=== PATIENT | male | born 1970 | race American Indian/Alaskan Native ===

== ENCOUNTER 2017-04-05 21:50 | Observation (INO) | payer BC ==
[2017-04-05 22:42] LABS: BASO # 0.1 K/uL (0.0-0.2); BASO % 1.3 % (0.0-2.0); EOS # 0.1 K/uL (0.0-0.7); EOS % 1.4 % (0.0-4.0); HEMATOCRIT 39.9 % (35.0-51.0); LYMPH # 1.9 K/uL (1.0-4.3); MEAN CELL VOLUME 83.2 fL (80.0-94.0); MEAN CORPUSCULAR HGB CONC 33.7 g/dL (33.0-37.0); MEAN PLATELET VOLUME 7.7 fL (7.2-11.7); MONO # 0.5 K/uL (0.0-0.8); MONO % 10.3 % (0.0-10.0); RED CELL DISTRIBUTION WIDTH 14.1 % (11.5-14.5)
[2017-04-05 22:49] LABS: CHLORIDE 104 mmol/L (98-107); SODIUM 139 mmol/L (132-148)
[2017-04-05 22:50] LABS: POTASSIUM 4.2 mmol/L (3.6-5.2)
[2017-04-05 22:52] LABS: ALB/GLOB RATIO 1.2 (1.0-2.1); ALKALINE PHOSPHATASE 62 U/L (38-126); ALT/SGPT 32 U/L (21-72); AST/SGOT 21 U/L (17-59); BILIRUBIN,TOTAL 0.5 mg/dL (0.2-1.3); BLOOD UREA NITROGEN 20 mg/dL (9-20); CARBON DIOXIDE 25 mmol/L (22-30); GFR AFRICAN-AMERICAN > 60; TOTAL PROTEIN 7.3 g/dL (6.3-8.3)
[2017-04-05 22:53] LABS: CALCIUM 8.5 mg/dl (8.6-10.4); GLUCOSE,RANDOM 93 mg/dL (75-110)
[2017-04-05 23:59] LABS: PARTIAL THROMBOPLASTIN TIME 26 SECONDS (21-34)
--- NOTE | 2017-04-06 00:28 | C.PDOC ---
History Of Present Illness Pt c/o left sided chest pain. Time Seen by Provider: 04/05/17 22:34 Chief Complaint (Nursing): Chest Pain History Per: Patient, Family Onset/Duration Of Symptoms: Days (few), Intermittent Episodes Current Symptoms Are (Timing): Still Present Severity: Moderate Quality: "Pain" Associated Symptoms: Dyspnea. denies: Nausea, Diaphoresis, Syncope Alleviating Factors: None Additional History Per: Prior Records Past Medical History Reviewed: Historical Data, Nursing Documentation, Vital Signs Vital Signs: Last Vital Signs Temp 98.2 F 04/05/17 22:17 Pulse 64 04/05/17 22:17 Resp 20 04/05/17 22:17 BP 127/87 04/05/17 22:17 Pulse Ox 98 04/05/17 22:17 - Medical History PMH: No Chronic Diseases Surgical History: No Surg Hx Family History: States: Unknown Family Hx - Social History Hx Tobacco Use: No Hx Alcohol Use: Yes Hx Substance Use: No Review Of Systems Except As Marked, All Systems Reviewed And Found Negative. Constitutional: Negative for: Fever, Weakness Cardiovascular: Positive for: Chest Pain Respiratory: Negative for: Shortness of Breath Gastrointestinal: Negative for: Vomiting, Abdominal Pain Musculoskeletal: Negative for: Neck Pain, Back Pain, Leg Pain Skin: Negative for: Rash Neurological: Negative for: Weakness, Numbness Physical Exam - Physical Exam Appears: Non-toxic, No Acute Distress Skin: Normal Color, Warm, Dry, No Rash Head: Atraumatic, Normacephalic Eye(s): bilateral: Normal Inspection, PERRL, EOMI Neck: Normal ROM, Supple Chest: Symmetrical, No Deformity, No Tenderness Cardiovascular: Rhythm Regular Respiratory: Normal Breath Sounds, No Accessory Muscle Use Gastrointestinal/Abdominal: Soft, No Tenderness Back: No CVA Tenderness Extremity: Normal ROM, No Pedal Edema, No Calf Tenderness Neurological/Psych: Oriented x3, Normal Motor, Normal Sensation ED Course And Treatment - Laboratory Results Result Diagrams: 04/05/17 22:38 04/05/17 22:38 Lab Interpretation: No Acute Changes ECG: Interpreted By Me, Viewed By Me ECG Rhythm: Sinus Rhythm, ST/T Changes (T wave inversions in leads III and aVF. ) ECG Interpretation: Abnormal Rate From EC O2 Sat by Pulse Oximetry: 98 Pulse Ox Interpretation: Normal - Radiology CXR: Interpreted by Me, Viewed By Me CXR Interpretation: Yes: No Acute Disease, Heart Size (wnl) Progress - Interventions Interventions:: Observation - Medications Administered Oral: Aspirin - Data Reviewed Data Reviewed: Lab, Diagnostic imaging, EKG, Old records - Patient Status Patient status: Partially improved - Continuity of Care Discussed patient case with:: Patient, Family-HIPPA compliant, ED Nurse, On- call PMD-pt unassigned Disposition Discussed With DrMary: Hermann Chapman Comment: He accepted pt on his service and gave admitting orders to the nurse. Doctor Will See Patient In The: Hospital Counseled Patient/Family Regarding: Studies Performed, Diagnosis - Disposition Disposition: HOSPITALIZED Disposition Time: 00:31 Condition: FAIR - Clinical Impression Clinical Impression: Chest pain, Abnormal EKG
--- NOTE | 2017-04-06 08:52 | RAD ---
HISTORY: Chest pain COMPARISON: No prior. FINDINGS: LUNGS: The lungs are well inflated and clear. PLEURA: No significant pleural effusion identified, no pneumothorax apparent. CARDIOVASCULAR: Normal. OSSEOUS STRUCTURES: No significant abnormalities. VISUALIZED UPPER ABDOMEN: Normal. OTHER FINDINGS: None. IMPRESSION: No active pulmonary disease.
[2017-04-06] MEDS: Enoxaparin 40 mg Syringe SC SCH (10:22)
[2017-04-06] MEDS: Pantoprazole 40 mg EC Tab PO SCH (10:22)
[2017-04-06] MEDS: Aspirin 325 mg EC Tablets PO SCH (11:19)
--- NOTE | 2017-04-06 17:56 | CP.PCM.HP ---
Past Patient History - Past Medical History & Family History Past Medical History?: No - Past Social History Smoking Status: Never Smoked - CARDIAC Hx Heart Murmur: Yes - MUSCULOSKELETAL/RHEUMATOLOGICAL Hx Falls: No - PSYCHIATRIC Hx Substance Use: No - SURGICAL HISTORY Hx Surgeries: Yes Other/Comment: R knee fluid drained 03/22/2017 @'s office - ANESTHESIA Hx Anesthesia: No Meds Allergies/Adverse Reactions: Allergies Allergy/AdvReac Type Severity Reaction Status Date / Time No Known Allergies Allergy Verified 04/05/17 22:01 Physical Exam - Constitutional Appears: Well - Head Exam Head Exam: ATRAUMATIC, NORMAL INSPECTION, NORMOCEPHALIC - Eye Exam Eye Exam: EOMI, Normal appearance, PERRL Pupil Exam: NORMAL ACCOMODATION, PERRL - ENT Exam ENT Exam: Mucous Membranes Moist, Normal Exam - Neck Exam Neck exam: Positive for: Normal Inspection - Respiratory Exam Respiratory Exam: Decreased Breath Sounds - Cardiovascular Exam Cardiovascular Exam: REGULAR RHYTHM, +S1, +S2 - GI/Abdominal Exam GI & Abdominal Exam: Diminished Bowel Sounds, Soft - Rectal Exam Rectal Exam: Deferred Results - Vital Signs Recent Vital Signs: Last Vital Signs Temp 98.3 F 04/06/17 16:00 Pulse 62 04/06/17 10:00 Resp 18 04/06/17 04:00 BP 114/72 04/06/17 03:12 Pulse Ox 98 04/06/17 04:00 - Labs Result Diagrams: 04/05/17 22:38 04/05/17 22:38 Labs: Laboratory Results - last 24 hr 04/05/17 04/05/17 04/05/17 22:38 22:38 23:34 WBC 5.0 RBC 4.79 Hgb 13.4 Hct 39.9 MCV 83.2 MCH 28.0 MCHC 33.7 RDW 14.1 Plt Count 254 MPV 7.7 Neut % (Auto) 49.0 L Lymph % (Auto) 38.0 [place] % (Auto) 10.3 H Eos % (Auto) 1.4 Baso % (Auto) 1.3 Neut # 2.4 Lymph # 1.9 [place] # 0.5 Eos # 0.1 Baso # 0.1 PT 11.8 INR 1.0 APTT 26 D-Dimer, Quantitative < 200 Sodium 139 Potassium 4.2 Chloride 104 Carbon Dioxide 25 Anion Gap 14 BUN 20 Creatinine 1.2 Est GFR ( Amer) > 60 Est GFR (Non-Af Amer) > 60 Random Glucose 93 Calcium 8.5 L Total Bilirubin 0.5 AST 21 ALT 32 Alkaline Phosphatase 62 Total Creatine Kinase 339 H CK-MB (Mass) 2.38 Troponin I, Quant < 0.0120 Total Protein 7.3 Albumin 4.0 Globulin 3.3 Albumin/Globulin Ratio 1.2 04/06/17 04/06/17 06:23 15:20 WBC RBC Hgb Hct MCV MCH MCHC RDW Plt Count MPV Neut % (Auto) Lymph % (Auto) [place] % (Auto) Eos % (Auto) Baso % (Auto) Neut # Lymph # [place] # Eos # Baso # PT INR APTT D-Dimer, Quantitative Sodium Potassium Chloride Carbon Dioxide Anion Gap BUN Creatinine Est GFR ( Amer) Est GFR (Non-Af Amer) Random Glucose Calcium Total Bilirubin AST ALT Alkaline Phosphatase Total Creatine Kinase 306 H 334 H CK-MB (Mass) 2.12 2.35 Troponin I, Quant < 0.0120 < 0.0120 Total Protein Albumin Globulin Albumin/Globulin Ratio
--- NOTE | 2017-04-06 21:54 | CP.PCM.CON ---
History of Present Illness - History of Present Illness History of Present Illness: Patient seen and evaluated Admitted with chest pain For stress test in am ECHO: Normal Ef Past Patient History - Past Medical History & Family History Past Medical History?: No - Past Social History Smoking Status: Never Smoked - CARDIAC Hx Heart Murmur: Yes - MUSCULOSKELETAL/RHEUMATOLOGICAL Hx Falls: No - PSYCHIATRIC Hx Substance Use: No - SURGICAL HISTORY Hx Surgeries: Yes Other/Comment: R knee fluid drained 03/22/2017 @'s office - ANESTHESIA Hx Anesthesia: No Meds Allergies/Adverse Reactions: Allergies Allergy/AdvReac Type Severity Reaction Status Date / Time No Known Allergies Allergy Verified 04/05/17 22:01 - Medications Medications: Current Medications Aspirin (Ecotrin) 325 mg PO DAILY [facility] Last Admin: 04/06/17 11:19 Dose: Not Given Enoxaparin Sodium (Lovenox) 40 mg SC DAILY [facility] Last Admin: 04/06/17 10:22 Dose: 40 mg Pantoprazole Sodium (Protonix Ec Tab) 40 mg PO DAILY [facility] Last Admin: 04/06/17 10:22 Dose: 40 mg Results - Vital Signs Recent Vital Signs: Last Vital Signs Temp 98.2 F 04/06/17 20:00 Pulse 76 04/06/17 20:00 Resp 17 04/06/17 20:00 BP 134/89 04/06/17 20:00 Pulse Ox 98 04/06/17 20:00 - Labs Result Diagrams: 04/05/17 22:38 04/05/17 22:38 Labs: Laboratory Results - last 24 hr 04/05/17 04/05/17 04/05/17 22:38 22:38 23:34 WBC 5.0 RBC 4.79 Hgb 13.4 Hct 39.9 MCV 83.2 MCH 28.0 MCHC 33.7 RDW 14.1 Plt Count 254 MPV 7.7 Neut % (Auto) 49.0 L Lymph % (Auto) 38.0 [place] % (Auto) 10.3 H Eos % (Auto) 1.4 Baso % (Auto) 1.3 Neut # 2.4 Lymph # 1.9 [place] # 0.5 Eos # 0.1 Baso # 0.1 PT 11.8 INR 1.0 APTT 26 D-Dimer, Quantitative < 200 Sodium 139 Potassium 4.2 Chloride 104 Carbon Dioxide 25 Anion Gap 14 BUN 20 Creatinine 1.2 Est GFR ( Amer) > 60 Est GFR (Non-Af Amer) > 60 Random Glucose 93 Calcium 8.5 L Total Bilirubin 0.5 AST 21 ALT 32 Alkaline Phosphatase 62 Total Creatine Kinase 339 H CK-MB (Mass) 2.38 Troponin I, Quant < 0.0120 Total Protein 7.3 Albumin 4.0 Globulin 3.3 Albumin/Globulin Ratio 1.2 04/06/17 04/06/17 06:23 15:20 WBC RBC Hgb Hct MCV MCH MCHC RDW Plt Count MPV Neut % (Auto) Lymph % (Auto) [place] % (Auto) Eos % (Auto) Baso % (Auto) Neut # Lymph # [place] # Eos # Baso # PT INR APTT D-Dimer, Quantitative Sodium Potassium Chloride Carbon Dioxide Anion Gap BUN Creatinine Est GFR ( Amer) Est GFR (Non-Af Amer) Random Glucose Calcium Total Bilirubin AST ALT Alkaline Phosphatase Total Creatine Kinase 306 H 334 H CK-MB (Mass) 2.12 2.35 Troponin I, Quant < 0.0120 < 0.0120 Total Protein Albumin Globulin Albumin/Globulin Ratio
[2017-04-07] MEDS ORDERED: Aminophylline 25 mg/ml Inj ONE (07:35)
--- NOTE | 2017-04-07 07:47 | CARD ---
APPROVED REPORT EXAM: Two-dimensional and M-mode echocardiogram with Doppler and color Doppler. Other Information Quality : GoodRhythm : NSR INDICATION Abnormal EKG/Arrhythmia Dyspnea Chest Pain 2D DIMENSIONS IVSd0.9 (0.7-1.1cm)LVDd4.7 (3.9-5.9cm) PWd1.0 (0.7-1.1cm)LVDs2.8 (2.5-4.0cm) FS (%) 39.9 %LVEF (%)70.5 (>50%) M-Mode DIMENSIONS Left Atrium (MM)4.00 (2.5-4.0cm)Aortic Root3.61 (2.2-3.7cm) Aortic Cusp Exc.2.32 (1.5-2.0cm) Mitral Valve MV E Yckoouua51.0cm/sMV A Vjerjruy18.6cm/sE/A ratio0.8 TDI E/Lateral E'0.0E/Medial E'0.0 Tricuspid Valve TR Peak [id number]/sTR Peak Gr.[id number] LEFT VENTRICLE The left ventricle is normal size. There is normal left ventricular wall thickness. Left ventricle systolic function is normal. The Ejection Fraction is >70%. There is normal LV segmental wall motion. Tissue Doppler imaging reveals abnormal left ventricular diastolic dysfunction. RIGHT VENTRICLE The right ventricle is normal size. There is normal right ventricular wall thickness. The right ventricular systolic function is normal. ATRIA The left atrium size is normal. The right atrium size is normal. The interatrial septum is intact with no evidence for an atrial septal defect. AORTIC VALVE The aortic valve is normal in structure. No aortic regurgitation is present. There is no aortic valvular stenosis. There is no aortic valvular vegetation. MITRAL VALVE The mitral valve is normal in structure. There is no evidence of mitral valve prolapse. There is no mitral valve stenosis. Mitral regurgitation is trace. TRICUSPID VALVE The tricuspid valve is normal in structure. There is mild tricuspid regurgitation. Right ventricular systolic pressure is estimated at less than 30 mmHg. There is no pulmonary hypertension. PULMONIC VALVE The pulmonic valve is not well visualized. There is mild pulmonic valvular regurgitation. GREAT VESSELS The aortic root is normal in size. PERICARDIAL EFFUSION There is no significant pericardial effusion. <Conclusion> Left ventricle systolic function is normal. The Ejection Fraction is >70%. Diastolic dysfunction. No aortic regurgitation is present. Mitral regurgitation is trace. There is mild tricuspid regurgitation. There is no pulmonary hypertension. There is mild pulmonic valvular regurgitation.
[2017-04-07] MEDS: Pantoprazole 40 mg EC Tab PO SCH ×2 (14:34→17:27)
[2017-04-07] MEDS: Enoxaparin 40 mg Syringe SC SCH (14:35)
[2017-04-07] MEDS: Aspirin 325 mg EC Tablets PO SCH ×2 (14:35→17:27)
[2017-04-07 16:25] VITALS: TEMP 98.1; O2SAT 98
--- NOTE | 2017-04-07 17:30 | CARD ---
APPROVED REPORT Protocol: LIZBETH Test Type: NUCLEAR STRESS Test Indications: CP Target HR: 173 bpm Resting ECG: abnormal Resting Heart Rate: 83 bpm Resting Blood Pressure: 132/80mmHg submaximum (85%): 147 bpm TEST SUMMARY [id number]:02..1.081/.0. [id number]:160.00.01.080/.0. PRETESTWARM-UP00:[id number]/80.0. EXERCISESTAGE 100:[id number]/80.0. EXERCISESTAGE 201:[id number]/80.0. EXERCISESTAGE 303:[id number]/80.1. EXERCISESTAGE 400:[id number]/80.0. [id number]:[id number]/80.0. POST EXERCISE Reason for Termination: Target heart rate achieved Target HR: No Max HR: 151 bpm 88% of Maximum Predicted HR: 173 bpm Exercise duration: 05:01 min:sec, 4 Stage Exercise capacity: 11.0METs Max Blood Pressure: 146/80mmHg Blood Pressure response to exercise: normal resting BP - appropriate response Heart Rate response to exercise: appropriate Chest Pain: No, none Angina index: 0 Arrhythmia: No, none ST Change: Yes, Depression upsloping Deviation: 0 mm INTERPRETATION Stress EKG Conclusion: Nuclear report to follow EXAM: Myocardial Perfusion REST/STRESS Imaging Protocol The imaging protocol used to acquire images was Rest Tc-99m/stress Tc-99m 1 day Rest Spect myocardial perfusion imaging was performed in supine position 45 minutes following the injection of 13.0 mCi of Tc-99 Myoview. Gated Stress Spect was performed 45 minutes after intravenous 32.6 mci Tc-99 Myoview injection. The images were gated to evaluate regional wall motion and calculate ventricular ejection fraction.Images were reconstructed using backfilter projection method in short horizontal and verticle long axis. Spect slices were generated. RESTING DATA JFA237.00ml ESV36.00mlMyocardial Mvmi871.00g EF66.00% STRESS DATA EDV90.00ml ESV22.00mlMyocardial Ljyw339.00g EF76.00% Regional WT score at stress:0.00 Regional WM score at stress:0.00 Summed WT score at stress:2.00 Summed WM score at stress:3.00 LV Perf. Quant 17 Seg. SSS0.00 17 Seg. SRS0.00 17 Seg. SDS0.00 Stress Defect Extent (% LAD)0.00Rest Defect Extent (% LAD)0.00Rev. Defect Extent (% LAD)0.00 Stress Defect Extent (% LCX)0.00Rest Defect Extent (% LCX)0.00Rev. Defect Extent (% LCX)0.00 Stress Defect Extent (% RCA)0.00Rest Defect Extent (% RCA)0.00Rev. Defect Extent (% RCA)0.00 Stress Defect Extent (% RASHEL)0.00Rest Defect Extent (% RASHEL)0.00Rev. Defect Extent (% RASHEL)0.00 Other Information Quality:Good Overall Exercise Capacity: Normal IMPRESSION Normal Myocardial Perfusion exercise stress study Left Ventricle LV Function:Left ventricle systolic function is normal. The Ejection Fraction is >55%. Metabolism/Perfusion There are no perfusion/metabolism defects. Conclusion 1. Normal Exercise Nuclear Stress Test. Normal EF.
--- NOTE | 2017-04-07 17:40 | CP.PCM.PN ---
Subjective - Date & Time of Evaluation Date of Evaluation: 04/07/17 Time of Evaluation: 13:20 - Subjective Subjective: clinically same Objective - Vital Signs/Intake and Output Vital Signs (last 24 hours): Temp Pulse Resp BP Pulse Ox 98.1 F 81 12 134/87 98 04/07/17 16:00 04/07/17 16:00 04/07/17 16:00 04/07/17 16:00 04/07/17 16:00 Intake and Output: 04/07/17 04/07/17 06:59 18:59 Intake Total 300 Output Total 600 Balance -300 - Medications Medications: Current Medications Aspirin (Ecotrin) 325 mg PO DAILY [facility] Last Admin: 04/07/17 17:27 Dose: 325 mg Enoxaparin Sodium (Lovenox) 40 mg SC DAILY [facility] Last Admin: 04/07/17 14:35 Dose: Not Given Pantoprazole Sodium (Protonix Ec Tab) 40 mg PO DAILY [facility] Last Admin: 04/07/17 17:27 Dose: 40 mg - Labs Labs: 04/05/17 22:38 04/05/17 22:38 PT 11.8 SECONDS (9.7-12.2) 04/05/17 23:34 INR 1.0 04/05/17 23:34 APTT 26 SECONDS (21-34) 04/05/17 23:34 - Constitutional Appears: Well - Head Exam Head Exam: ATRAUMATIC, NORMAL INSPECTION, NORMOCEPHALIC - Eye Exam Eye Exam: EOMI, Normal appearance, PERRL Pupil Exam: NORMAL ACCOMODATION, PERRL - ENT Exam ENT Exam: Mucous Membranes Moist, Normal Exam - Neck Exam Neck Exam: Full ROM, Normal Inspection. absent: Lymphadenopathy - Respiratory Exam Respiratory Exam: Decreased Breath Sounds - Cardiovascular Exam Cardiovascular Exam: REGULAR RHYTHM, +S1, +S2 - GI/Abdominal Exam GI & Abdominal Exam: Soft, Diminished Bowel Sounds - Rectal Exam Rectal Exam: Deferred
[2017-04-07 18:29] VITALS: BP 105/53; PULSE 75; RESP 20
== END 2017-04-07 19:49 | disposition home or self-care (01) ==
LOC: C.ER 21:50 → C.9E 04-06 00:32 → C.9I 04-06 02:48
PROVIDERS: ADMIT Internal Medicine Nephrology; ATTEND Internal Medicine Nephrology
DX: R07.9 Chest pain, unspecified (principal); R94.31 Abnormal electrocardiogram [ECG] [EKG]
CPT/HCPCS: 71010; 78452; 80053; 84484; 85025; 85378; 85610; 85730; 87081; 93017; 93306; 99285; A9502; G0378; J1650